=== PATIENT | male | born 1975 | race Caucasian/White ===

== ENCOUNTER 2021-06-17 09:59 | Outpatient (CLI) | payer MEDICARE, MEDICAID | END 2021-06-17 10:00 | disposition home or self-care (01) | LOC: CSHWCC 09:59 | PROVIDERS: ATTEND Nurse Practitioner Family | DX: I87.311 Chronic venous hypertension (idiopathic) with ulcer of right lower extremity (principal); I10 Essential (primary) hypertension; I82.409 Acute embolism and thrombosis of unspecified deep veins of unspecified lower extremity; I87.2 Venous insufficiency (chronic) (peripheral); L97.312 Non-pressure chronic ulcer of right ankle with fat layer exposed; L97.811 Non-pressure chronic ulcer of other part of right lower leg limited to breakdown of skin; L97.822 Non-pressure chronic ulcer of other part of left lower leg with fat layer exposed; R60.0 Localized edema | CPT/HCPCS: 11042; 29581; 87070; 87205; 97139; G0463; 87077; 87186; 99213 ==

== ENCOUNTER 2021-06-27 10:02 | Outpatient (CLI) | payer MEDICARE, MEDICAID | END 2021-06-27 10:03 | disposition home or self-care (01) | LOC: CSHWCC 10:02 | PROVIDERS: ATTEND Nurse Practitioner Family | DX: I87.313 Chronic venous hypertension (idiopathic) with ulcer of bilateral lower extremity (principal); I87.2 Venous insufficiency (chronic) (peripheral); L97.312 Non-pressure chronic ulcer of right ankle with fat layer exposed; L97.822 Non-pressure chronic ulcer of other part of left lower leg with fat layer exposed; L97.811 Non-pressure chronic ulcer of other part of right lower leg limited to breakdown of skin; I10 Essential (primary) hypertension; I82.409 Acute embolism and thrombosis of unspecified deep veins of unspecified lower extremity; R60.0 Localized edema | CPT/HCPCS: 11042; 99213; G0463 ==

== ENCOUNTER 2021-10-23 10:50 | Outpatient (CLI) | payer MEDICARE, MEDICAID | END 2021-10-23 10:51 | disposition home or self-care (01) | LOC: CSHWCC 10:50 | PROVIDERS: ATTEND Nurse Practitioner Family | DX: I87.332 Chronic venous hypertension (idiopathic) with ulcer and inflammation of left lower extremity (principal); L97.222 Non-pressure chronic ulcer of left calf with fat layer exposed; L97.822 Non-pressure chronic ulcer of other part of left lower leg with fat layer exposed; L97.811 Non-pressure chronic ulcer of other part of right lower leg limited to breakdown of skin; R60.0 Localized edema | CPT/HCPCS: 11042 ==

== ENCOUNTER 2021-11-20 11:09 | Outpatient (CLI) | payer MEDICARE, MEDICAID | END 2021-11-20 11:10 | disposition home or self-care (01) | LOC: CSHWCC 11:09 | PROVIDERS: ATTEND Nurse Practitioner Family | DX: I87.332 Chronic venous hypertension (idiopathic) with ulcer and inflammation of left lower extremity (principal); L97.222 Non-pressure chronic ulcer of left calf with fat layer exposed; L97.811 Non-pressure chronic ulcer of other part of right lower leg limited to breakdown of skin; L97.822 Non-pressure chronic ulcer of other part of left lower leg with fat layer exposed; R60.0 Localized edema ==

== ENCOUNTER → 2021-12-04 | Outpatient (CLI) | payer MEDICARE, MEDICAID | LOC: CSHWCC 21:24 | PROVIDERS: ATTEND Nurse Practitioner Family | DX: I87.332 Chronic venous hypertension (idiopathic) with ulcer and inflammation of left lower extremity (principal); L97.811 Non-pressure chronic ulcer of other part of right lower leg limited to breakdown of skin; L97.822 Non-pressure chronic ulcer of other part of left lower leg with fat layer exposed; L97.222 Non-pressure chronic ulcer of left calf with fat layer exposed; R60.0 Localized edema | CPT/HCPCS: 11042; 29581 ==

== ENCOUNTER 2021-12-18 10:29 | Outpatient (CLI) | payer MEDICARE, MEDICAID | END 2021-12-18 10:30 | disposition home or self-care (01) | LOC: CSHWCC 10:29 | PROVIDERS: ATTEND Nurse Practitioner Family | DX: I87.332 Chronic venous hypertension (idiopathic) with ulcer and inflammation of left lower extremity (principal); L97.811 Non-pressure chronic ulcer of other part of right lower leg limited to breakdown of skin; L97.822 Non-pressure chronic ulcer of other part of left lower leg with fat layer exposed; L97.222 Non-pressure chronic ulcer of left calf with fat layer exposed; R60.0 Localized edema | CPT/HCPCS: 97139; G0463; 99214 ==

== ENCOUNTER 2022-05-01 10:35 | Outpatient (CLI) | payer MEDICARE, MEDICAID | END 2022-05-01 10:36 | disposition home or self-care (01) | LOC: CSHWCC 10:35 | PROVIDERS: ATTEND Nurse Practitioner Family | DX: I87.312 Chronic venous hypertension (idiopathic) with ulcer of left lower extremity (principal); L97.322 Non-pressure chronic ulcer of left ankle with fat layer exposed; L97.822 Non-pressure chronic ulcer of other part of left lower leg with fat layer exposed; R60.0 Localized edema | CPT/HCPCS: 29581; 87070; 87077; 87186; 87205 ==

== ENCOUNTER 2022-08-04 10:05 | Outpatient (CLI) | payer MEDICARE, MEDICAID | END 2022-08-04 10:06 | disposition home or self-care (01) | LOC: CSHWCC 10:05 | PROVIDERS: ATTEND Nurse Practitioner Family | DX: I87.312 Chronic venous hypertension (idiopathic) with ulcer of left lower extremity (principal); L97.322 Non-pressure chronic ulcer of left ankle with fat layer exposed; L97.822 Non-pressure chronic ulcer of other part of left lower leg with fat layer exposed; R60.0 Localized edema | CPT/HCPCS: 29581; 87070; 87077; 87186; 87205; 99213; G0463 ==

== ENCOUNTER 2022-09-09 10:13 | Outpatient (CLI) | payer MEDICARE, MEDICAID | END 2022-09-09 10:14 | disposition home or self-care (01) | LOC: CSHWCC 10:13 | PROVIDERS: ATTEND Nurse Practitioner Family | DX: I87.333 Chronic venous hypertension (idiopathic) with ulcer and inflammation of bilateral lower extremity (principal); L97.812 Non-pressure chronic ulcer of other part of right lower leg with fat layer exposed; L97.822 Non-pressure chronic ulcer of other part of left lower leg with fat layer exposed; L97.311 Non-pressure chronic ulcer of right ankle limited to breakdown of skin; L97.821 Non-pressure chronic ulcer of other part of left lower leg limited to breakdown of skin; R60.0 Localized edema | CPT/HCPCS: 29581; 97139; 97607; G0463; 99212 ==

== ENCOUNTER 2022-09-30 08:19 | Outpatient (CLI) | payer OTHER, MEDICAID | END 2022-09-30 08:20 | disposition home or self-care (01) | LOC: CSHWCC 08:19 | PROVIDERS: ATTEND Nurse Practitioner Family | DX: I87.311 Chronic venous hypertension (idiopathic) with ulcer of right lower extremity (principal); L97.822 Non-pressure chronic ulcer of other part of left lower leg with fat layer exposed; L97.812 Non-pressure chronic ulcer of other part of right lower leg with fat layer exposed; R60.0 Localized edema; I87.331 Chronic venous hypertension (idiopathic) with ulcer and inflammation of right lower extremity; L97.311 Non-pressure chronic ulcer of right ankle limited to breakdown of skin | CPT/HCPCS: 29581; 97607 ==

== ENCOUNTER 2022-10-06 10:44 | Outpatient (CLI) | payer OTHER, MEDICAID | END 2022-10-06 10:45 | disposition home or self-care (01) | LOC: CSHWCC 10:44 | PROVIDERS: ATTEND Nurse Practitioner Family | DX: I87.331 Chronic venous hypertension (idiopathic) with ulcer and inflammation of right lower extremity (principal); L97.311 Non-pressure chronic ulcer of right ankle limited to breakdown of skin; L97.822 Non-pressure chronic ulcer of other part of left lower leg with fat layer exposed; R60.0 Localized edema | CPT/HCPCS: 11042; 29581; 97607 ==

== ENCOUNTER 2023-02-03 11:06 | Outpatient (CLI) | payer OTHER, MEDICAID | END 2023-02-03 11:07 | disposition home or self-care (01) | LOC: CSHWCC 11:06 | PROVIDERS: ATTEND Nurse Practitioner Family | DX: I87.332 Chronic venous hypertension (idiopathic) with ulcer and inflammation of left lower extremity (principal); L97.821 Non-pressure chronic ulcer of other part of left lower leg limited to breakdown of skin; R60.0 Localized edema; L97.822 Non-pressure chronic ulcer of other part of left lower leg with fat layer exposed | CPT/HCPCS: 29581; 97139; G0463; 99213 ==

== ENCOUNTER 2023-10-12 12:53 | Outpatient (CLI) | payer OTHER | END 2023-10-12 12:54 | disposition home or self-care (01) | LOC: CSHWCC 12:53 | PROVIDERS: ATTEND Nurse Practitioner Family | DX: L97.322 Non-pressure chronic ulcer of left ankle with fat layer exposed (principal); L97.312 Non-pressure chronic ulcer of right ankle with fat layer exposed; I87.313 Chronic venous hypertension (idiopathic) with ulcer of bilateral lower extremity; I82.593 Chronic embolism and thrombosis of other specified deep vein of lower extremity, bilateral | CPT/HCPCS: 11042 ==

== ENCOUNTER 2023-12-01 11:39 | Outpatient (CLI) | payer OTHER | END 2023-12-01 11:40 | disposition home or self-care (01) | LOC: CSHWCC 11:39 | PROVIDERS: ATTEND Nurse Practitioner Family | DX: I87.313 Chronic venous hypertension (idiopathic) with ulcer of bilateral lower extremity (principal); I82.593 Chronic embolism and thrombosis of other specified deep vein of lower extremity, bilateral; L97.312 Non-pressure chronic ulcer of right ankle with fat layer exposed; L97.322 Non-pressure chronic ulcer of left ankle with fat layer exposed | CPT/HCPCS: 11042; 87070; 87205; G0463; 99214 ==

== ENCOUNTER 2023-12-09 13:34 | Outpatient (CLI) | payer OTHER | END 2023-12-09 13:35 | disposition home or self-care (01) | LOC: CSHWCC 13:34 | PROVIDERS: ATTEND Nurse Practitioner Family | DX: I87.313 Chronic venous hypertension (idiopathic) with ulcer of bilateral lower extremity (principal); L97.322 Non-pressure chronic ulcer of left ankle with fat layer exposed; L97.312 Non-pressure chronic ulcer of right ankle with fat layer exposed; I82.593 Chronic embolism and thrombosis of other specified deep vein of lower extremity, bilateral | CPT/HCPCS: 87070; 87077; 87186; 87205 ==

== ENCOUNTER 2023-12-27 10:44 | Outpatient (CLI) | payer OTHER | END 2023-12-27 10:45 | disposition home or self-care (01) | LOC: CSHWCC 10:44 | PROVIDERS: ATTEND Nurse Practitioner Family | DX: I87.313 Chronic venous hypertension (idiopathic) with ulcer of bilateral lower extremity (principal); I82.593 Chronic embolism and thrombosis of other specified deep vein of lower extremity, bilateral; L97.322 Non-pressure chronic ulcer of left ankle with fat layer exposed; L97.312 Non-pressure chronic ulcer of right ankle with fat layer exposed | CPT/HCPCS: 11042 ==

== ENCOUNTER 2024-01-03 11:17 | Outpatient (CLI) | payer OTHER | END 2024-01-03 11:18 | disposition home or self-care (01) | LOC: CSHWCC 11:17 | PROVIDERS: ATTEND Nurse Practitioner Family | DX: I87.313 Chronic venous hypertension (idiopathic) with ulcer of bilateral lower extremity (principal); I82.593 Chronic embolism and thrombosis of other specified deep vein of lower extremity, bilateral; L97.322 Non-pressure chronic ulcer of left ankle with fat layer exposed; L97.312 Non-pressure chronic ulcer of right ankle with fat layer exposed | CPT/HCPCS: 11042 ==

== ENCOUNTER 2024-01-10 15:42 | Outpatient (CLI) | payer OTHER | END 2024-01-10 15:43 | disposition home or self-care (01) | LOC: CSHWCC 15:42 | PROVIDERS: ATTEND Preventive Medicine Undersea and Hyperbaric Medicine | DX: I87.313 Chronic venous hypertension (idiopathic) with ulcer of bilateral lower extremity (principal); I82.593 Chronic embolism and thrombosis of other specified deep vein of lower extremity, bilateral; L97.322 Non-pressure chronic ulcer of left ankle with fat layer exposed; L97.312 Non-pressure chronic ulcer of right ankle with fat layer exposed | CPT/HCPCS: 11042 ==

== ENCOUNTER 2024-02-03 14:21 | Outpatient (CLI) | payer OTHER | END 2024-02-03 14:22 | disposition home or self-care (01) | LOC: CSHWCC 14:21 | PROVIDERS: ATTEND Nurse Practitioner Family | DX: I87.313 Chronic venous hypertension (idiopathic) with ulcer of bilateral lower extremity (principal); I82.593 Chronic embolism and thrombosis of other specified deep vein of lower extremity, bilateral; L97.322 Non-pressure chronic ulcer of left ankle with fat layer exposed; L97.312 Non-pressure chronic ulcer of right ankle with fat layer exposed | CPT/HCPCS: 11042 ==

== ENCOUNTER 2025-03-27 12:33 | Outpatient (CLI) | payer MEDICARE, OTHER, SELFPAY | END 2025-03-27 12:34 | disposition home or self-care (01) | LOC: CSHWCC 12:33 | PROVIDERS: ATTEND Nurse Practitioner Family | DX: L02.214 Cutaneous abscess of groin (principal); N50.89 Other specified disorders of the male genital organs; Z86.718 Personal history of other venous thrombosis and embolism | CPT/HCPCS: 99213; G0463 ==

== ENCOUNTER 2025-04-03 14:23 | Outpatient (CLI) | payer OTHER | END 2025-04-03 14:24 | disposition home or self-care (01) | LOC: CSHWCC 14:23 | PROVIDERS: ATTEND Nurse Practitioner Family | DX: L02.214 Cutaneous abscess of groin (principal); N50.89 Other specified disorders of the male genital organs; Z86.718 Personal history of other venous thrombosis and embolism | CPT/HCPCS: 11042; 97605; G0463; 99213 ==

== ENCOUNTER 2025-04-06 09:40 | Outpatient (CLI) | payer OTHER | END 2025-04-06 09:41 | disposition home or self-care (01) | LOC: CSHWCC 09:40 | PROVIDERS: ATTEND Nurse Practitioner Family | DX: L02.214 Cutaneous abscess of groin (principal); N50.89 Other specified disorders of the male genital organs; Z86.718 Personal history of other venous thrombosis and embolism | CPT/HCPCS: 97605 ==

== ENCOUNTER 2025-04-10 14:25 | Outpatient (CLI) | payer OTHER | END 2025-04-10 14:26 | disposition home or self-care (01) | LOC: CSHWCC 14:25 | PROVIDERS: ATTEND Nurse Practitioner Family | DX: L02.214 Cutaneous abscess of groin (principal); N50.89 Other specified disorders of the male genital organs; Z86.718 Personal history of other venous thrombosis and embolism | CPT/HCPCS: 11042; 97605 ==

== ENCOUNTER 2025-04-13 12:48 | Outpatient (CLI) | payer OTHER | END 2025-04-13 12:49 | disposition home or self-care (01) | LOC: CSHWCC 12:48 | PROVIDERS: ATTEND Nurse Practitioner Family | DX: L02.214 Cutaneous abscess of groin (principal); N50.89 Other specified disorders of the male genital organs; Z86.718 Personal history of other venous thrombosis and embolism | CPT/HCPCS: 97605 ==

== ENCOUNTER 2025-04-17 13:39 | Outpatient (CLI) | payer OTHER | END 2025-04-17 13:40 | disposition home or self-care (01) | LOC: CSHWCC 13:39 | PROVIDERS: ATTEND Nurse Practitioner Family | DX: S31.501D Unspecified open wound of unspecified external genital organs, male, subsequent encounter (principal); L02.214 Cutaneous abscess of groin; N50.89 Other specified disorders of the male genital organs; Z86.718 Personal history of other venous thrombosis and embolism | CPT/HCPCS: 11042; 97605 ==

== ENCOUNTER 2025-04-27 10:08 | Outpatient (CLI) | payer OTHER | END 2025-04-27 10:09 | disposition home or self-care (01) | LOC: CSHWCC 10:08 | PROVIDERS: ATTEND Nurse Practitioner Family | DX: S31.501D Unspecified open wound of unspecified external genital organs, male, subsequent encounter (principal); L02.214 Cutaneous abscess of groin; N50.89 Other specified disorders of the male genital organs; Z86.718 Personal history of other venous thrombosis and embolism | CPT/HCPCS: 11042 ==

== ENCOUNTER 2025-05-01 14:47 | Outpatient (CLI) | payer OTHER | END 2025-05-01 14:48 | disposition home or self-care (01) | LOC: CSHWCC 14:47 | PROVIDERS: ATTEND Nurse Practitioner Family | DX: S31.501D Unspecified open wound of unspecified external genital organs, male, subsequent encounter (principal); L02.214 Cutaneous abscess of groin; N50.89 Other specified disorders of the male genital organs; Z86.718 Personal history of other venous thrombosis and embolism | CPT/HCPCS: 11042; G0463; 99213 ==